=== PATIENT | male | born 1975 | race Caucasian/White ===

== ENCOUNTER 2024-12-26 20:11 | Inpatient (IN) | payer MEDICAID ==
[~2024-12-26] VITALS: Ht 180.3 cm; Wt 123.1 kg
[2024-12-26] MEDS: LABETALOL HCL 5 MG/ML 20 ML VIAL IVP ONE (20:37)
[2024-12-26] MEDS: ONDANSETRON HCL 4 MG/2 ML VIAL IVP ONE (20:37)
[2024-12-26 20:41] LABS: PLATELET COUNT (AUTO) 301 K/uL (150-450); RED BLOOD CELL COUNT(AUTO) 5.95 MIL/uL (4.50-5.90); RED CELL DISTRIBUTION WIDTH 14.4 % (11.5-14.5); WHITE BLOOD COUNT (AUTO) 8.1 K/uL (4.5-11.0)
[2024-12-26 20:47] LABS: CALCIUM, TOTAL 10.4 mg/dL (8.8-10.5); CREATININE 0.81 mg/dL (0.60-1.30); GLOMERULAR FILTR. RATE CALC > 60 mL/min (>60); GLUCOSE,RANDOM 156 mg/dL (70-110); SODIUM SERUM 138 mmol/L (136-145); UREA NITROGEN, BLOOD 10 mg/dL (7-18)
[2024-12-26 20:53] LABS: ALCOHOL, BLOOD (SERUM) < 3 mg/dL (0-10)
[2024-12-26 20:55] LABS: ASPARTATE AMINOTRANSFERASE 24 U/L (15-37); CHOL/HDL RATIO 5.4 (4.2-7.3); LDL CHOL (CALC.) 168 mg/dL (0-130); TOTAL PROTEIN, SERUM 7.6 g/dL (6.4-8.2)
[2024-12-26] MEDS ORDERED: 0.9% SODIUM CHLORIDE 10 ML SYRINGE IVP ONE (20:55)
[2024-12-26] MEDS ORDERED: IOHEXOL 300 MG/ML 100 ML VIAL ONE (20:55)
[2024-12-26] MEDS ORDERED: SODIUM CHLORIDE 0.9% 100 ML ONE (20:55)
[2024-12-26 20:57] LABS: TROPONIN I-HIGH SENSITIVITY 19 ng/L (<76)
[2024-12-26] MEDS: LevETIRAcetam 1,000 MG in DEXTROSE 5%-WATER 100 ML IV ONE (20:58)
[2024-12-26 22:01] LABS: APPEARANCE,URINE CLEAR (CLEAR); GLUCOSE, URINE (UA) NEGATIVE (NEGATIVE); LEUKOCYTE ESTERASE ,URINE NEGATIVE (NEGATIVE); NITRATE,URINE NEGATIVE (NEGATIVE); OCCULT BLOOD,URINE NEGATIVE (NEGATIVE); PH,URINE DRUG SCREEN 7.0 (5.0-8.0); SPECIFIC GRAVITIY, URINE 1.028 (1.003-1.030)
[2024-12-26 22:07] LABS: ALCOHOL, URINE DRUG SCREEN NEGATIVE (NEGATIVE); AMPHET/METH SCREEN,URINE NEGATIVE (NEGATIVE); BARBITURATE SCREEN, URINE NEGATIVE (NEGATIVE); CANNABINOID SCREEN,URINE POSITIVE (NEGATIVE); COCAINE SCREEN,URINE NEGATIVE (NEGATIVE); METHADONE SCREEN, URINE NEGATIVE (NEGATIVE)
[2024-12-26 22:08] LABS: SQUAMOUS EPITHELIAL CELL,UR Rare /LPF (None Seen)
[2024-12-26] MEDS ORDERED: ZOLPIDEM TARTRATE 5 MG TABLET PO PRN (22:30)
[2024-12-26] MEDS ORDERED: BISACODYL 10 MG RECTAL RECTAL SUPPOSITORY PR PRN (22:30)
[2024-12-26] MEDS ORDERED: HYDROCODONE/ACETAMINOPHEN 5-325 MG TABLET PO PRN (22:30)
[2024-12-27 02:30] LABS: TROPONIN I-HIGH SENSITIVITY 24 ng/L (<76)
[2024-12-27 08:24] LABS: TROPONIN I-HIGH SENSITIVITY 35 ng/L (<76)
[2024-12-27] MEDS: DOCUSATE SODIUM 100 MG CAPSULE PO SCH (09:00)
[2024-12-27] MEDS: PANTOPRAZOLE SODIUM 40 MG DR TABLET PO SCH (09:00)
[2024-12-27 09:45] VITALS: PULSE 114
[2024-12-27] MEDS: METOPROLOL TARTRATE 5 MG/5 ML VIAL IVP ONE (10:52)
[2024-12-27] MEDS ORDERED: LABETALOL HCL 200 MG in DEXTROSE 5%-WATER 160 ML IV PRN (11:15)
[2024-12-27] MEDS: MORPHINE SULFATE 4 MG/ML SYRINGE IVP PRN (11:23)
[2024-12-27] MEDS: ACETAMINOPHEN 325 MG TABLET PO PRN (11:44)
[2024-12-27] MEDS: NITROGLYCERIN 2% (1 GM=INCH) OINTMENT PACKET TP SCH (11:44)
[2024-12-27 11:45] VITALS: BP 152/100; PULSE 101; RESP 16; TEMP 98.2; O2SAT 97
[2024-12-27] MEDS: ONDANSETRON HCL 4 MG/2 ML VIAL IVP PRN (11:52)
[2024-12-27 12:00] VITALS: BP 138/67; PULSE 96; RESP 16; TEMP 98.4; O2SAT 97
[2024-12-27 16:00] VITALS: BP 131/86; PULSE 91; RESP 16; TEMP 98.2; O2SAT 97
[2024-12-27] MEDS ORDERED: SODIUM CHLORIDE 0.9% 250 ML IV ONE (18:09)
[2024-12-27 20:00] VITALS: BP 120/77; PULSE 88; RESP 18; TEMP 98.4; O2SAT 97
[2024-12-28] VITALS: BP 125/93; PULSE 94; RESP 18; TEMP 98.4; O2SAT 97
[2024-12-28 04:00] VITALS: BP 126/85; PULSE 95; RESP 15; TEMP 98.5; O2SAT 97
[2024-12-28 06:00] LABS: PLATELET COUNT (AUTO) 269 K/uL (150-450); RED BLOOD CELL COUNT(AUTO) 5.39 MIL/uL (4.50-5.90); RED CELL DISTRIBUTION WIDTH 14.6 % (11.5-14.5); WHITE BLOOD COUNT (AUTO) 10.1 K/uL (4.5-11.0)
[2024-12-28 06:11] LABS: CALCIUM, TOTAL 9.6 mg/dL (8.8-10.5); CREATININE 0.57 mg/dL (0.60-1.30); GLOMERULAR FILTR. RATE CALC > 60 mL/min (>60); GLUCOSE,RANDOM 118 mg/dL (70-110); SODIUM SERUM 139 mmol/L (136-145); UREA NITROGEN, BLOOD 8 mg/dL (7-18)
[2024-12-28 08:00] VITALS: BP 153/99; PULSE 111; RESP 19; TEMP 98.4; O2SAT 99
[2024-12-28] MEDS: LOSARTAN POTASSIUM 50 MG TABLET PO SCH (10:04)
[2024-12-28] MEDS: LABETALOL HCL 100 MG TABLET PO SCH (10:04)
[2024-12-28] MEDS: NITROGLYCERIN 2% (1 GM=INCH) OINTMENT PACKET TP SCH (11:21)
[2024-12-28 12:00] VITALS: BP 134/88; PULSE 105; RESP 18; TEMP 98.4; O2SAT 98
[2024-12-28 16:00] VITALS: BP 116/78; PULSE 92; RESP 19; TEMP 98.4; O2SAT 96
[2024-12-28 20:00] VITALS: BP 129/89; PULSE 102; RESP 18; TEMP 98.3; O2SAT 94
[2024-12-29] VITALS: BP 110/77; PULSE 103; RESP 18; TEMP 98.5; O2SAT 94
[2024-12-29 04:00] VITALS: BP 148/101; PULSE 95; RESP 19; TEMP 99; O2SAT 94
[2024-12-29 05:53] LABS: PLATELET COUNT (AUTO) 292 K/uL (150-450); RED BLOOD CELL COUNT(AUTO) 5.47 MIL/uL (4.50-5.90); RED CELL DISTRIBUTION WIDTH 14.6 % (11.5-14.5); WHITE BLOOD COUNT (AUTO) 10.5 K/uL (4.5-11.0)
[2024-12-29 06:00] LABS: CALCIUM, TOTAL 10.0 mg/dL (8.8-10.5); CREATININE 0.59 mg/dL (0.60-1.30); GLOMERULAR FILTR. RATE CALC > 60 mL/min (>60); GLUCOSE,RANDOM 119 mg/dL (70-110); SODIUM SERUM 136 mmol/L (136-145); UREA NITROGEN, BLOOD 9 mg/dL (7-18)
[2024-12-29 08:00] VITALS: PULSE 96
[2024-12-29 12:00] VITALS: PULSE 91
[2024-12-29 16:00] VITALS: BP 132/65; PULSE 98; RESP 20; TEMP 97.6; O2SAT 95
[2024-12-29 20:00] VITALS: BP 126/76; PULSE 93; RESP 18; TEMP 98.1; O2SAT 94
[2024-12-30] VITALS (8 sets, daily range): BP systolic 109–162; BP diastolic 75–104; PULSE 88–108; RESP 13–22; TEMP 98.2–98.7; O2SAT 94–97
[2024-12-30 05:58] LABS: PLATELET COUNT (AUTO) 305 K/uL (150-450); RED BLOOD CELL COUNT(AUTO) 5.06 MIL/uL (4.50-5.90); RED CELL DISTRIBUTION WIDTH 14.4 % (11.5-14.5); WHITE BLOOD COUNT (AUTO) 8.6 K/uL (4.5-11.0)
[2024-12-30 06:08] LABS: CALCIUM, TOTAL 9.8 mg/dL (8.8-10.5); CREATININE 0.61 mg/dL (0.60-1.30); GLOMERULAR FILTR. RATE CALC > 60 mL/min (>60); GLUCOSE,RANDOM 118 mg/dL (70-110); SODIUM SERUM 137 mmol/L (136-145); UREA NITROGEN, BLOOD 10 mg/dL (7-18)
[2024-12-30] MEDS: LOSARTAN POTASSIUM 50 MG TABLET PO SCH (08:48)
[2024-12-30] MEDS ORDERED: POTASSIUM CHL 10 MEQ/WATER 50 ML IV PRN (10:45)
[2024-12-30] MEDS ORDERED: LABETALOL HCL 5 MG/ML 20 ML VIAL IVP PRN (10:45)
[2024-12-30] MEDS: LABETALOL HCL 100 MG TABLET PO SCH (11:42)
[2024-12-30] MEDS: POTASSIUM CHLORIDE 20 MEQ ER TABLET PO PRN (11:43)
[2024-12-30] MEDS ORDERED: SODIUM CHLORIDE 0.9% 250 ML IV ONE (17:11)
[2024-12-30] MEDS: SPIRONOLACTONE 25 MG TABLET PO SCH (17:13)
[2024-12-30] MEDS: TERAZOSIN HCL 1 MG CAPSULE PO ONE (17:14)
[2024-12-30] MEDS: LABETALOL HCL 200 MG TABLET PO SCH (20:59)
[2024-12-31] VITALS (8 sets, daily range): BP systolic 117–162; BP diastolic 65–100; PULSE 88–104; RESP 17–20; TEMP 97.9–99.1; O2SAT 96–98
[2024-12-31 06:06] LABS: PLATELET COUNT (AUTO) 285 K/uL (150-450); RED BLOOD CELL COUNT(AUTO) 4.84 MIL/uL (4.50-5.90); RED CELL DISTRIBUTION WIDTH 14.0 % (11.5-14.5); WHITE BLOOD COUNT (AUTO) 8.1 K/uL (4.5-11.0)
[2024-12-31 06:25] LABS: CALCIUM, TOTAL 9.8 mg/dL (8.8-10.5); CREATININE 0.68 mg/dL (0.60-1.30); GLOMERULAR FILTR. RATE CALC > 60 mL/min (>60); GLUCOSE,RANDOM 106 mg/dL (70-110); SODIUM SERUM 136 mmol/L (136-145); UREA NITROGEN, BLOOD 15 mg/dL (7-18)
[2024-12-31] MEDS ORDERED: SPIR-37 PO (10:50)
[2024-12-31] MEDS ORDERED: HYDR25TA PO (10:50)
[2024-12-31] MEDS ORDERED: LOSA-382 PO (10:50)
[2024-12-31] MEDS ORDERED: ISOS30TA92 PO (10:50)
[2024-12-31] MEDS ORDERED: DILT30TA3 PO (10:50)
[2024-12-31] MEDS ORDERED: LABE200T56 PO (10:50)
[2024-12-31] MEDS: ISOSORBIDE MONONITRATE 30 MG ER TABLET PO SCH (13:41)
[2024-12-31] MEDS: MAGNESIUM HYDROXIDE SUSPENSION 30 ML UDCUP PO PRN (13:41)
[2025-01-01 03:56] VITALS: BP 143/87; PULSE 91; RESP 18; TEMP 98.6; O2SAT 96
[2025-01-01] MEDS ORDERED: SODIUM CHLORIDE 0.9% 250 ML IV ONE (05:34)
[2025-01-01 06:39] LABS: PLATELET COUNT (AUTO) 314 K/uL (150-450); RED BLOOD CELL COUNT(AUTO) 5.22 MIL/uL (4.50-5.90); RED CELL DISTRIBUTION WIDTH 14.2 % (11.5-14.5); WHITE BLOOD COUNT (AUTO) 9.2 K/uL (4.5-11.0)
[2025-01-01 06:50] LABS: CALCIUM, TOTAL 10.5 mg/dL (8.8-10.5); CREATININE 0.67 mg/dL (0.60-1.30); GLOMERULAR FILTR. RATE CALC > 60 mL/min (>60); GLUCOSE,RANDOM 101 mg/dL (70-110); SODIUM SERUM 135 mmol/L (136-145); UREA NITROGEN, BLOOD 16 mg/dL (7-18)
[2025-01-01 07:11] VITALS: BP 171/110; PULSE 100; RESP 18; TEMP 98.5; O2SAT 97
[2025-01-01] MEDS: LABETALOL HCL 200 MG TABLET PO SCH (08:40)
[2025-01-01] MEDS ORDERED: TERAZOSIN HCL 2 MG CAPSULE PO SCH (09:30)
[2025-01-01] MEDS ORDERED: ISOSORBIDE MONONITRATE 30 MG ER TABLET PO SCH (09:30)
[2025-01-01] MEDS ORDERED: RINGERS SOLUTION,LACTATED 1,000 ML IV ONE (11:00)
[2025-01-01 11:35] VITALS: BP 113/69; PULSE 81; RESP 18; TEMP 98.1; O2SAT 96
[2025-01-01] MEDS: RINGERS SOLUTION,LACTATED 1,000 ML IV ONE ×2 (12:19→12:20)
[2025-01-01 15:47] VITALS: BP 153/93; PULSE 80; RESP 18; TEMP 98; O2SAT 97
[2025-01-01 20:16] VITALS: BP 111/74; PULSE 86; RESP 19; TEMP 98.1; O2SAT 96
[2025-01-01 21:40] VITALS: BP 115/77; PULSE 91; RESP 18; TEMP 98.3; O2SAT 97
[2025-01-02] VITALS (9 sets, daily range): BP systolic 118–151; BP diastolic 76–102; PULSE 79–93; RESP 17–19; TEMP 97.3–98.8; O2SAT 96–99
[2025-01-02] MEDS: LOSARTAN POTASSIUM 50 MG TABLET PO SCH (08:02)
[2025-01-03] VITALS (7 sets, daily range): BP systolic 122–159; BP diastolic 85–108; PULSE 79–96; RESP 17–19; TEMP 97.5–98.4; O2SAT 95–98
[2025-01-04 04:47] VITALS: BP 130/90; PULSE 76; RESP 18; TEMP 97.5; O2SAT 97
[2025-01-04 06:54] LABS: PLATELET COUNT (AUTO) 448 K/uL (150-450); RED BLOOD CELL COUNT(AUTO) 5.72 MIL/uL (4.50-5.90); RED CELL DISTRIBUTION WIDTH 14.1 % (11.5-14.5); WHITE BLOOD COUNT (AUTO) 6.9 K/uL (4.5-11.0)
[2025-01-04 07:03] LABS: CALCIUM, TOTAL 11.0 mg/dL (8.8-10.5); CREATININE 0.96 mg/dL (0.60-1.30); GLOMERULAR FILTR. RATE CALC > 60 mL/min (>60); GLUCOSE,RANDOM 101 mg/dL (70-110); SODIUM SERUM 134 mmol/L (136-145); UREA NITROGEN, BLOOD 21 mg/dL (7-18)
[2025-01-04 07:20] VITALS: BP 148/104; PULSE 79; RESP 18; TEMP 98.2; O2SAT 97
[2025-01-04 19:00] VITALS: BP 136/92; PULSE 82; RESP 20; TEMP 98; O2SAT 98
[2025-01-05 04:54] VITALS: BP 129/103; PULSE 87; RESP 18; TEMP 98.1; O2SAT 96
[2025-01-05 08:00] VITALS: BP 158/95; PULSE 86; RESP 20; TEMP 98.1; O2SAT 100
[2025-01-05] MEDS: BACITRACIN ZINC/POLYMYXIN B 14.2 GM OINTMENT TP SCH (12:45)
[2025-01-05 16:00] VITALS: BP 111/89; PULSE 83; RESP 20; TEMP 97.7; O2SAT 98
[2025-01-05 20:47] VITALS: BP 147/90; PULSE 81; RESP 20; TEMP 97.5; O2SAT 92
== END 2025-01-05 21:00 | disposition home or self-care (01) | DRG 44 ==
LOC: EMS 20:11 → EDH 22:25 → ICU 12-27 10:33 → 5S 12-30 16:45 → 6S 01-04 08:10
PROVIDERS: ADMIT Internal Medicine; ATTEND Internal Medicine
DX: I61.0 Nontraumatic intracerebral hemorrhage in hemisphere, subcortical (principal); J96.00 Acute respiratory failure, unspecified whether with hypoxia or hypercapnia; I16.1 Hypertensive emergency; R29.713 NIHSS score 13; R13.0 Aphagia; E87.6 Hypokalemia; F12.90 Cannabis use, unspecified, uncomplicated; I10 Essential (primary) hypertension; I95.9 Hypotension, unspecified; Z91.199 Patient's noncompliance with other medical treatment and regimen due to unspecified reason
CPT/HCPCS: 70450; 70496; 70498; 71045; 80048; 80053; 80061; 80307; 81001; 82948; 83036; 83735; 84132; 84484; 85025; 85610; 85730; 86850; 86900; 86901; 87081; 92610; 93005; 93970; 96374; 96375; 97112; 97116; 97163; 97167; 97530; 97535; 99291; G0480; J0360; J0712; J2270; J2405; J3490; J7050; J7060; J7120; Q9967; 36415-L1; 36415-TC

== ENCOUNTER → 2025-01-29 | Emergency (ER) | payer MEDICAID ==
[~2025-01-29] VITALS: Ht 185.4 cm; Wt 115.9 kg
[~2025-01-29] MED LIST: DILT30TA3 PO; HYDR25TA PO; ISOS30TA92 PO; LABE200T56 PO; LEVE-71 PO; LOSA-382 PO; SPIR-37 PO
[2025-01-29 20:38] VITALS: TEMP 98.1
[2025-01-29] MEDS: LOSARTAN POTASSIUM 50 MG TABLET PO ONE (21:38)
[2025-01-29] MEDS: LABETALOL HCL 5 MG/ML 20 ML VIAL IVP ONE (21:38)
[2025-01-29 21:49] LABS: PLATELET COUNT (AUTO) 294 K/uL (150-450); RED BLOOD CELL COUNT(AUTO) 5.34 MIL/uL (4.50-5.90); RED CELL DISTRIBUTION WIDTH 14.0 % (11.5-14.5); WHITE BLOOD COUNT (AUTO) 7.2 K/uL (4.5-11.0)
[2025-01-29 21:55] LABS: CALCIUM, TOTAL 9.8 mg/dL (8.8-10.5); CREATININE 0.69 mg/dL (0.60-1.30); GLOMERULAR FILTR. RATE CALC > 60 mL/min (>60); GLUCOSE,RANDOM 115 mg/dL (70-110); SODIUM SERUM 141 mmol/L (136-145); UREA NITROGEN, BLOOD 7 mg/dL (7-18)
[2025-01-29 22:01] LABS: CREATINE KINASE, TOTAL ONLY 32 U/L (39-308)
[2025-01-29 22:05] LABS: TROPONIN I-HIGH SENSITIVITY 13 ng/L (<76)
[2025-01-29] MEDS: ISOSORBIDE MONONITRATE 30 MG ER TABLET PO ONE (22:09)
[2025-01-29 22:45] VITALS: BP 15/91; PULSE 96; RESP 14; O2SAT 96
== END | disposition still patient (30) ==
LOC: EMS 20:37
DX: I10 Essential (primary) hypertension (principal); R51.9 Headache, unspecified; Z76.0 Encounter for issue of repeat prescription; Z79.899 Other long term (current) drug therapy
CPT/HCPCS: 99285; 96374; 71045; 80048; 82550; 83880; 84484; 85025; 85610; 36415; 93005; J3490